=== PATIENT | female | born 1960 | race Caucasian/White ===

== ENCOUNTER → 2020-01-10 10:19 | Outpatient (BNVA) | payer OTHER, SELFPAY | PROVIDERS: Family Provider Family Medicine; PCP Family Medicine; Visit Provider Family Medicine | DX: G93.3 Postviral and related fatigue syndromes (principal); E78.00 Pure hypercholesterolemia, unspecified; N39.9 Disorder of urinary system, unspecified; R73.9 Hyperglycemia, unspecified; M77.11 Lateral epicondylitis, right elbow | CPT/HCPCS: 80053; 80061; 81003; 83036; 84443; 85025 ==

== ENCOUNTER → 2020-12-14 09:45 | Outpatient (BNVA) | payer OTHER, SELFPAY | PROVIDERS: Family Provider Family Medicine; PCP Family Medicine; Visit Provider Obstetrics & Gynecology | DX: Z12.4 Encounter for screening for malignant neoplasm of cervix (principal); Z12.39 Encounter for other screening for malignant neoplasm of breast; M85.80 Other specified disorders of bone density and structure, unspecified site | CPT/HCPCS: 88175 ==

== ENCOUNTER 2021-01-22 14:35 | Outpatient (CLI) | payer OTHER, SELFPAY ==
--- NOTE | 2021-01-22 15:00 | MM_ITS ---
WS: [id number] BILATERAL SCREENING DIGITAL MAMMOGRAM WITH CAD HISTORY: Z12.39 - Encounter for other screening for malignant neoplasm of breast COMPARISON: 02/12/2018 and 05/12/2013 Bilateral CC and MLO views submitted. Computer aided detection analyzed. Breast composition: There are scattered areas of fibroglandular density. No suspicious masses, microc alcifications or architectural distortion. MM/[place] [id number] IMPRESSION: BI-RADS: 1-Negative FOLLOW UP: 1 Year Follow-up
--- NOTE | 2021-01-22 15:08 | XR_ITS ---
WS: [id number] Exam: XR DEXA axial skeleton* [id number] Date/Time of Exam: 01/22/2021 3:08 PM Reason For Exam: M85.80 - Other specified disorders of bone density and structure, unspecified site DEXA BONE DENSITOMETRY [employer] The L1-L4 bone mineral density measures 0.868 g/cm2. This corresponds to a T score of -2.6 and Z scor e of -1.6. Left femoral neck bone mineral density measures 0.736 g/cm2. This corresponds to T score of -2.2 and Z score of -1.4. Right femoral neck bone mineral density measures 0.741 g/cm2. This corresponds to a T score of -2.1 a nd Z score of -1.4. Mean femoral neck bone mineral density measures 0.739 g/cm2. This corresponds to a T score of -2.1 an d Z score of -1.4 XR/XR DEXA axial skeleton* [id number] IMPRESSION: Bone mineral density lies in the osteoporotic range. Refer to detailed summary .
== END 2021-01-22 14:36 | disposition home or self-care (01) ==
LOC: RADSHAW 14:37
PROVIDERS: PCP Family Medicine; Visit Provider Obstetrics & Gynecology
DX: M85.80 Other specified disorders of bone density and structure, unspecified site (principal); Z12.31 Encounter for screening mammogram for malignant neoplasm of breast
CPT/HCPCS: 77067; 77080

== ENCOUNTER → 2021-05-15 09:04 | Outpatient (BNVA) | payer OTHER, SELFPAY | PROVIDERS: PCP Family Medicine; Visit Provider Family Medicine | DX: M54.5 Low back pain (principal); R10.2 Pelvic and perineal pain; K52.9 Noninfective gastroenteritis and colitis, unspecified; Z68.25 Body mass index [BMI] 25.0-25.9, adult | CPT/HCPCS: 81000; 81003 ==

== ENCOUNTER 2021-06-22 08:24 | Outpatient (CLI) | payer OTHER, SELFPAY ==
[2021-06-22] MEDS: iohexol 300 mg/mL 100 mL Btl IV (09:34)
[2021-06-22] MEDS: iohexol 300 mg/mL 50 mL Btl PO (09:40)
--- NOTE | 2021-06-22 10:00 | CT_ITS ---
WS: [id number] CT scan of the abdomen and pelvis with Oral and IV contrast. Additional two-dimensional coronal and s agittal reconstruction was performed. 06/22/2021 Clinical Data: K52.9 - Noninfective gastroenteritis and colitis, unspeci... Comparison: CT abdomen and pelvis, 12/13/2016. DLP: 1163.[address] scans at [facility] use at least one of these dose optimization techniques: automat ed exposure control; mA and/or kV adjustment per patient size (includes targeted exams where dose is matched to clinical indication); or iterative reconstruction. Findings: The lower lungs show no nodules, masses or effusions. The liver, gallbladder, spleen, adrenal glands and pancreas are normal. The kidneys show equal bilateral contrast excretion with no cyst or masses. The abdominal aorta is normal in size. No appendicitis or diverticulitis is seen. Oral contrast is in the stomach and small bowel and there is no bowel dilatation. No abscess, adenopathy, ascites, mass, obstruction or free air is seen. The bladder is unremarkable. The uterus is normal. No inguinal hernia is seen. The bones of the lower thorax, lumbar spine, pelvis, and hips are normal. CT/CT abdomen pelvis w con* [id number] Impression: No acute intra-abdominal or pelvic abnormality is seen.
== END 2021-06-22 08:25 | disposition home or self-care (01) ==
PROVIDERS: PCP Family Medicine; Visit Provider Family Medicine
DX: K36 Other appendicitis (principal); K52.9 Noninfective gastroenteritis and colitis, unspecified; R10.31 Right lower quadrant pain
CPT/HCPCS: 74177; Q9967

== ENCOUNTER 2022-02-19 06:03 | Outpatient (CLI) | payer OTHER, SELFPAY ==
--- NOTE | 2022-02-19 06:15 | USCV_ITS ---
Alba Sherman Age: 61 Gender: F : 1960 Exam Date: 02/19/2022 06:10 Ordering Phys: Tico Dennis MD Technologist: YAHAIRA [place] [facility] [place]ication: left leg weakness, apahsia Risk Factors: Previous Vascular Surgery: Right Brachial BP: / Left Brachial BP: / Right Left Velocity (cm/s) Spectral Plaque Velocity (cm/s) Spectral Plaque Syst/Diast Broadening Syst/Diast Broadening 57.20/ 7.30 Prox CCA 91.50 / 15.40 64.50/ 14.00 Mid CCA 68.40 / 18.40 59.80/ 15.50 Distal CCA 59.20 / 20.40 38.70/ 13.60 Prox ICA 49.30 / 17.80 48.60/ 13.60 Mid ICA 65.70 / 19.60 57.10/ 20.00 Distal ICA 65.60 / 24.00 47.30 ECA 51.90 0.89 ICA/CCA 0.96 Antegrade Vertebral Antegrade 43.80/ 10.10 cm/s 42.30/ 12.00 cm/s Tri Subclavian Bi 77.20 83.70 FINDINGS Comparison: none available. No significant elevation of systolic or diastolic velocities. Waveforms are normal. No significant amount of calcified plaque or intimal thickening identified. CONCLUSIONS Normal carotid doppler ultrasound. Dr. Elif Kovacs DO (Electronically Signed) Final Date: 19 February 2022 08:22 S
== END 2022-02-19 06:04 | disposition home or self-care (01) ==
LOC: RAD 06:04
PROVIDERS: PCP Family Medicine; Visit Provider Family Medicine
DX: I63.512 Cerebral infarction due to unspecified occlusion or stenosis of left middle cerebral artery (principal); R53.1 Weakness; R47.01 Aphasia
CPT/HCPCS: 93880

== ENCOUNTER 2022-09-09 09:31 | Outpatient (CLI) | payer OTHER, SELFPAY ==
--- NOTE | 2022-09-09 09:39 | XR_ITS ---
WS: [id number] Left knee, 3 views, 09/09/2022 Clinical Data: PAIN UNDER KNEE CAP Comparison: None. Findings: No fractures or dislocations are seen. There is mild medial and lateral joint space narrowing. The pa tella is intact a small posterior and superior spur. The soft tissues are unremarkable. XR/XR knee LT 3V* [id number] Impression: Minimal osteoarthritis of the left knee Kellgren-Kirill Classification: grade 1 (doubtful): doubtful joint space narr owing and possible osteophytic lipping
== END 2022-09-09 09:32 | disposition home or self-care (01) ==
LOC: RAD 09:33
PROVIDERS: PCP Family Medicine; Visit Provider Family Medicine
DX: M17.12 Unilateral primary osteoarthritis, left knee (principal)
CPT/HCPCS: 73562

== ENCOUNTER → 2023-02-01 16:34 | Outpatient (BNVA) | payer OTHER, SELFPAY | PROVIDERS: PCP Family Medicine; Visit Provider Nurse Practitioner Family | DX: N39.0 Urinary tract infection, site not specified (principal) | CPT/HCPCS: 81000 ==

== ENCOUNTER → 2023-08-22 14:00 | Outpatient (BNVA) | payer OTHER, SELFPAY | PROVIDERS: PCP Family Medicine; Visit Provider Nurse Practitioner Women's Health | DX: Z12.4 Encounter for screening for malignant neoplasm of cervix (principal); N95.0 Postmenopausal bleeding; N93.0 Postcoital and contact bleeding | CPT/HCPCS: 87624 ==

== ENCOUNTER → 2023-09-03 09:01 | Outpatient (BNVA) | payer OTHER, SELFPAY | PROVIDERS: PCP Family Medicine; Visit Provider Nurse Practitioner Women's Health | DX: D25.9 Leiomyoma of uterus, unspecified (principal) | CPT/HCPCS: 76830 ==

== ENCOUNTER 2023-10-06 13:08 | Outpatient (CLI) | payer OTHER, SELFPAY ==
--- NOTE | 2023-10-06 13:35 | MM_ITS ---
WS: [id number] BILATERAL 3D TOMOSYNTHESIS DIGITAL SCREENING MAMMOGRAPHY WITH CAD CLINICAL INFORMATION: Z12.31 - Encounter for screening mammogram for malignant ... HISTORY: Screening mammogram. No current complaints. COMPARISON: 2020 TECHNIQUE: Bilateral CC and MLO views. FINDINGS: Scattered fibroglandular densities bilaterally. No suspicious focal mass, asymmetry, calcifications, or architectural distortion. No evidence of malignancy. Incidental punctate calcifications. IMPRESSION: MM/[place] [id number] BI-RADS: 2-Benign FOLLOW UP: 1 Year Follow-up Recommend return to annual screening mammography.
--- NOTE | 2023-10-06 14:00 | XR_ITS ---
WS: [id number] SCREENING DEXA SCAN [employer] CLINICAL INFORMATION: M81.0 - Age-related osteoporosis without current patholog... COMPARISON: 2020 FINDINGS: The L1-L4 bone mineral density measures 0.952 g/cm2. This corresponds to a T score score of -1.9 and Z score of -0.8. Left femoral neck bone mineral density measures 0.784 g/cm2. This corresponds to a T score of -1.8 an d Z score of -0.9. Right femoral neck bone mineral density measures 0.782 g/cm2. This corresponds to a T score -1.8of an d Z score of -1.0. Mean femoral neck bone mineral density measures 0.783 g/cm2. This corresponds to a T score of -1.8 an d Z score of -0.9. IMPRESSION: Osteopenia lumbar spine. Osteopenia femoral necks. Patient's FRAX calculated 10 year probability for major osteoporotic fracture is 30.4% and osteoporotic hip fracture is 2.3%. Bone mineral density of the lumbar spine increased 9.7% Bone marrow density femoral necks increased 6.0%
== END 2023-10-06 13:09 | disposition home or self-care (01) ==
LOC: RAD 13:09
PROVIDERS: PCP Family Medicine; Visit Provider Nurse Practitioner Women's Health
DX: Z12.31 Encounter for screening mammogram for malignant neoplasm of breast; M81.0 Age-related osteoporosis without current pathological fracture; Z78.0 Asymptomatic menopausal state; M85.89 Other specified disorders of bone density and structure, multiple sites
CPT/HCPCS: 77063; 77067; 77080

== ENCOUNTER → 2023-10-20 14:56 | Outpatient (BNVA) | payer OTHER, SELFPAY | PROVIDERS: PCP Family Medicine; Visit Provider Family Medicine | DX: M60.9 Myositis, unspecified (principal); Z79.899 Other long term (current) drug therapy | CPT/HCPCS: 80053; 82550; 85025; 85651; 86140 ==

== ENCOUNTER → 2024-02-03 12:08 | Outpatient (BNVA) | payer OTHER, SELFPAY | PROVIDERS: PCP Family Medicine; Visit Provider Nurse Practitioner Women's Health | DX: N95.0 Postmenopausal bleeding (principal); N83.8 Other noninflammatory disorders of ovary, fallopian tube and broad ligament | CPT/HCPCS: 76830 ==

== ENCOUNTER → 2024-02-17 10:24 | Outpatient (BNVA) | payer OTHER, SELFPAY | PROVIDERS: PCP Family Medicine; Visit Provider Nurse Practitioner Women's Health | DX: N95.0 Postmenopausal bleeding (principal); N93.0 Postcoital and contact bleeding | CPT/HCPCS: 88305 ==

== ENCOUNTER → 2024-04-15 10:21 | Outpatient (BNVA) | payer OTHER, SELFPAY | PROVIDERS: PCP Family Medicine; Visit Provider Family Medicine | DX: R31.9 Hematuria, unspecified (principal); R53.1 Weakness | CPT/HCPCS: 85025; 85651 ==

== ENCOUNTER → 2025-06-09 13:54 | Outpatient (BNVA) | payer BC, SELFPAY | PROVIDERS: PCP Family Medicine; Visit Provider Family Medicine | DX: M47.812 Spondylosis without myelopathy or radiculopathy, cervical region (principal); K21.9 Gastro-esophageal reflux disease without esophagitis | CPT/HCPCS: 80053; 85025 ==

== ENCOUNTER 2025-06-22 14:40 | Outpatient (CLI) | payer BC, SELFPAY ==
--- NOTE | 2025-06-22 15:15 | CT_ITS ---
WS: [id number] CT HEAD WITH AND WITHOUT CONTRAST HISTORY: hx TIA and recent episode altered vision, headaches TECHNIQUE: Noncontrast axial images obtained from the vertex to the skull base. Additional imaging performed in axial images status post IV contrast. Bone and soft tissue windows are reviewed. All CT scans at [facility] use at least one of these dose optimization techniques: automated exposure control; mA and/or kV adjustment per patient size (includes targeted exams where dose is matched to clinical indication); or iterative reconstruction. CONTRAST: Omnipaque 350; 100 mL IV. DLP: 1925.38 mGy.cm COMPARISON: 06/22/2019 Mild atrophy and small vessel disease. No prior infarct. No acute intracranial hemorrhage, edema or midline shift. No enhancing mass or vascular malformations identified. Dural venous sinuses are normally enhancing. Visualized [place] of Fine is unremarkable. Paranasal sinuses as visualized: Mucoperiosteal thickening in the sphenoid sinuses. No air-fluid levels. Mastoid air cells: Clear. Calvarium and scalp: Intact. CT/CT head wo/w con [id number] IMPRESSION: 1. No acute intracranial hemorrhage or edema. 2. Mild atrophy and small vessel disease. 3. Sphenoid sinusitis.
[2025-06-22] MEDS: iohexol 350 mg/mL 500 mL Btl (per mL) IV (15:16)
== END 2025-06-22 14:41 | disposition home or self-care (01) ==
LOC: RAD 14:42
PROVIDERS: PCP Family Medicine; Visit Provider Family Medicine
DX: G44.229 Chronic tension-type headache, not intractable (principal); R53.1 Weakness; R03.0 Elevated blood-pressure reading, without diagnosis of hypertension; I67.89 Other cerebrovascular disease; J32.3 Chronic sphenoidal sinusitis; Z86.73 Personal history of transient ischemic attack (TIA), and cerebral infarction without residual deficits
CPT/HCPCS: 70470